=== PATIENT | female | born 2000 | race Caucasian/White ===

== ENCOUNTER 2024-08-27 15:50 | Emergency (ER) | payer SELFPAY ==
[2024-08-27] MEDS ORDERED: Ketorolac Tromethamine 30 MG (1 mL) VIAL ONE (16:01)
== END 2024-08-27 17:03 | disposition home or self-care (01) ==
LOC: ERS 15:50
DX: J06.9 Acute upper respiratory infection, unspecified (principal); Z87.891 Personal history of nicotine dependence
CPT/HCPCS: 87428; 96372; 99283; J1885

== ENCOUNTER 2024-09-02 12:51 | Emergency (ER) | payer SELFPAY ==
[2024-09-02] MEDS ORDERED: Dexamethasone 10 MG/ML VIAL ONE (14:36)
[2024-09-02] MEDS ORDERED: Albuterol 200 PUFF (6.7GM INHALER) ONE (14:37)
[2024-09-02] MEDS ORDERED: Oxymetazoline HCl 0.05% (30 ML BOT) ONE (14:37)
== END 2024-09-02 14:49 | disposition home or self-care (01) ==
LOC: ERS 12:51
DX: B34.9 Viral infection, unspecified (principal); R05.9 Cough, unspecified; Z87.891 Personal history of nicotine dependence
CPT/HCPCS: 71046; J1100